=== PATIENT | female | born 1985 | race African-American/Black ===

== ENCOUNTER 2017-03-20 13:18 | Emergency (ER) | END 2017-03-20 14:45 | disposition home or self-care (01) | DX: S16.1XXA Strain of muscle, fascia and tendon at neck level, initial encounter (principal); X58.XXXA Exposure to other specified factors, initial encounter; Y92.9 Unspecified place or not applicable | CPT/HCPCS: 93880; Z7502; Z7610 ==

== ENCOUNTER 2017-10-02 11:22 | Emergency (ER) | END 2017-10-02 11:36 | disposition home or self-care (01) ==